=== PATIENT | female | born 1955 | race African-American/Black ===

== ENCOUNTER 2021-05-14 18:32 | Inpatient (IN) ==
[2021-05-14] MEDS ORDERED: MORPHINE 4 MG/1 ML VIAL IV STA (19:37)
[2021-05-14] MEDS ORDERED: SODIUM CHLORIDE 0.9% 1,000 ML IV STA (19:37)
[2021-05-14] MEDS ORDERED: ONDANSETRON 4 MG/2 ML VIAL IV STA (19:37)
[2021-05-14 19:44] LABS: Basophils % 0.2 % (0.0-0.8); Eosinophils # 0.1 10*3/uL (0.0-0.87); Eosinophils % 0.4 % (0.00-10.9); Hematocrit 40.4 VOL% (35.7-47.0); Hemoglobin 12.9 GM/DL (12.0-16.0); Immature Granulocytes % 0.5 %; Immature Granulocytes Absolute 0.06 #; Lymphocytes # 0.7 10*3/uL (1.4-4.0); Lymphocytes % 6.6 % (21.3-54.2); Mean Corpuscular HGB Conc 31.9 GM/DL (32-36); Mean Platelet Volume 10.1 FL (9.6-12.0); Monocytes % 1.8 % (1.7-12.7); Neutrophils % 90.5 % (38.7-73.9); Platelet Count 252 T/CUMM (130-400); Red Blood Count 4.49 MC/CUMM (3.8-5.5); Red Cell Distribution Width 15.9 % (9.3-17.3); White Blood Count 11.2 T/CUMM (4-12)
[2021-05-14 19:59] LABS: Alanine Aminotransferase 38 U/L (13-56); Albumin 3.3 G/DL (3.4-5.0); Alkaline Phosphatase 96 U/L (45-117); Amylase 200 U/L (25-115); Aspartate Amino Transferase 106 U/L (0-37); Blood Urea Nitrogen 20 MG/DL (7-18); Calcium 9.1 MG/DL (8.5-10.1); Carbon Dioxide 33 MMOL/L (21-32); Estimated Glom Filtration Rate 54 ML/MIN; Glucose 127 MG/DL (74-106); Potassium 3.2 MMOL/L (3.5-5.1); Sodium 143 MMOL/L (136-145)
[2021-05-14] MEDS ORDERED: KETOROLAC 30 MG/1 ML VIAL ONE (20:05)
[2021-05-14] MEDS ORDERED: KETOROLAC 30 MG/1 ML VIAL IV STA (20:18)
[2021-05-14 20:29] LABS: Bacteria,Urine Occasional /HPF (Few); Bilirubin,Urine Negative (Negative); Blood, Urine Negative (Negative); Glucose,Urine (UA) Negative (Negative); Hyaline Casts,Urine 8 /LPF (0-3); Ketones,Urine Negative (Negative); Mucus,Urine Occasional /LPF (Occasional); Nitrite,Urine Negative (Negative); Protein,Urine Negative; Squamous Epithelial Cell,Urine Occasional /HPF (0-10); Urine Appearance CLEAR (Clear); Urine Color Yellow (Yellow); Urine Specific Gravity 1.012 (1.001-1.035)
[2021-05-14] MEDS ORDERED: POTASSIUM CHLORIDE 20 MEQ TABLET PO STA (21:04)
[2021-05-14] MEDS ORDERED: PIPERACILLIN/TAZOBACTAM 3,375 MG in SODIUM CHLORIDE 0.9% 100 ML IV STA (21:28)
[2021-05-14] MEDS ORDERED: carvediloL 25 MG TABLET PO ONE (22:16)
[2021-05-14] MEDS ORDERED: DOXAZOSIN 4 MG TABLET PO STA (22:17)
[2021-05-14] MEDS ORDERED: hydrALAZINE 25 MG TABLET PO STA (22:17)
[2021-05-14] MEDS ORDERED: GLUCAGON 1 MG VIAL IM PRN (22:19)
[2021-05-14] MEDS ORDERED: carvediloL 25 MG TABLET PO STA (22:19)
[2021-05-14] MEDS ORDERED: DEXTROSE 50% 25 GM/50 ML VIAL IV PRN (22:19)
[2021-05-14] MEDS ORDERED: hydrALAZINE 20 MG/1 ML VIAL IV PRN (22:41)
[2021-05-14] MEDS ORDERED: DOCUSATE SODIUM 100 MG CAPSULE PO PRN (22:41)
[2021-05-14] MEDS ORDERED: ONDANSETRON 4 MG/2 ML VIAL IV PRN (22:41)
[2021-05-14] MEDS ORDERED: ACETAMINOPHEN 325 MG TABLET PO PRN (22:41)
[2021-05-15] MEDS: SODIUM CHLORIDE 0.9% 1,000 ML IV SCH ×3 (00:23→20:23)
[2021-05-15 03:11] LABS: Basophils % 0.1 % (0.0-0.8); Hematocrit 34.5 VOL% (35.7-47.0); Hemoglobin 11.2 GM/DL (12.0-16.0); Immature Granulocytes % 0.5 %; Immature Granulocytes Absolute 0.09 #; Lymphocytes # 0.5 10*3/uL (1.4-4.0); Lymphocytes % 2.4 % (21.3-54.2); Mean Corpuscular HGB Conc 32.5 GM/DL (32-36); Mean Corpuscular Volume 89.1 FL (87-102); Mean Platelet Volume 9.6 FL (9.6-12.0); Monocytes % 5.3 % (1.7-12.7); Neutrophils % 91.7 % (38.7-73.9); Platelet Count 205 T/CUMM (130-400); Red Blood Count 3.87 MC/CUMM (3.8-5.5); White Blood Count 19.7 T/CUMM (4-12)
[2021-05-15 03:24] LABS: PT Patient Result 11.4 SECS (10.5-12.0)
[2021-05-15 03:30] LABS: Albumin 2.6 G/DL (3.4-5.0); Calcium 8.2 MG/DL (8.5-10.1); Potassium 2.8 MMOL/L (3.5-5.1); Risk Ratio 3.64; Total Protein 6.5 G/DL (6.4-8.2)
[2021-05-15 03:32] LABS: Band Neutrophils 5 % (0-10); Hypochromasia Slight; Lymphocytes 4 % (20-55); Microcytosis Slight; Platelet Estimate Adequate; Segmented Neutrophils 84 % (50-85); Total Cells Counted 100
[2021-05-15] MEDS: PIPERACILLIN/TAZOBACTAM 3,375 MG in SODIUM CHLORIDE 0.9% 100 ML IV SCH ×3 (04:50→20:24)
[2021-05-15] MEDS ORDERED: ENOXAPARIN 40 MG/0.4 ML SYRINGE SUBCUT SCH (09:00)
[2021-05-15] MEDS: INSULIN LISPRO 100 UNIT/ML SUBCUT SCH ×4 (09:51→20:25)
[2021-05-15] MEDS: PANTOPRAZOLE 40 MG VIAL IV SCH (09:55)
[2021-05-15] MEDS: POTASSIUM CHLORIDE RIDER 10 MEQ/100 ML PREMIX IV PRN ×5 (10:48→16:38)
[2021-05-15 14:06] LABS: Calcium 7.7 MG/DL (8.5-10.1); Osmolality,Calculated 285.1 MOS/KG (273-304); Potassium 3.2 MMOL/L (3.5-5.1)
[2021-05-16] MEDS: POTASSIUM CHLORIDE RIDER 10 MEQ/100 ML PREMIX IV PRN ×4 (03:19→06:34)
[2021-05-16 05:19] LABS: Basophils % 0.2 % (0.0-0.8); Eosinophils # 0.1 10*3/uL (0.0-0.87); Eosinophils % 1.2 % (0.00-10.9); Hemoglobin 10.6 GM/DL (12.0-16.0); Immature Granulocytes % 0.4 %; Immature Granulocytes Absolute 0.05 #; Lymphocytes # 1.7 10*3/uL (1.4-4.0); Lymphocytes % 14.8 % (21.3-54.2); Mean Corpuscular HGB Conc 32.1 GM/DL (32-36); Mean Corpuscular Volume 91.7 FL (87-102); Mean Platelet Volume 10.4 FL (9.6-12.0); Monocytes % 5.4 % (1.7-12.7); Platelet Count 171 T/CUMM (130-400); Red Cell Distribution Width 16.2 % (9.3-17.3); White Blood Count 11.3 T/CUMM (4-12)
[2021-05-16 05:29] LABS: INR 1.1; PT Patient Result 12.3 SECS (10.5-12.0)
[2021-05-16 05:33] LABS: Calcium 7.8 MG/DL (8.5-10.1); Potassium 3.2 MMOL/L (3.5-5.1)
[2021-05-16 05:36] LABS: Albumin 2.5 G/DL (3.4-5.0); Bilirubin,Total 3.5 MG/DL (0.2-1.0); Calcium 8.1 MG/DL (8.5-10.1); Potassium 3.1 MMOL/L (3.5-5.1); Total Protein 6.3 G/DL (6.4-8.2)
[2021-05-16] MEDS: PIPERACILLIN/TAZOBACTAM 3,375 MG in SODIUM CHLORIDE 0.9% 100 ML IV SCH ×2 (05:38→17:01)
[2021-05-16] MEDS: SODIUM CHLORIDE 0.9% 1,000 ML IV SCH ×2 (06:03→22:05)
[2021-05-16] MEDS ORDERED: INDOMETHACIN SUPP 50 MG SUPP RECTAL ONE ×2 (06:16→08:00)
[2021-05-16] MEDS: PANTOPRAZOLE 40 MG VIAL IV SCH (08:52)
[2021-05-16] MEDS: INSULIN LISPRO 100 UNIT/ML SUBCUT SCH ×4 (08:52→22:04)
[2021-05-16] MEDS ORDERED: ONDANSETRON 4 MG/2 ML VIAL ONE (14:11)
[2021-05-16] MEDS ORDERED: DEXAMETHASONE 4 MG/1 ML VIAL ONE (14:11)
[2021-05-16] MEDS ORDERED: SUCCINYLCHOLINE 200 MG/10 ML VIAL ONE (14:11)
[2021-05-16] MEDS ORDERED: ROCURONIUM 50 MG/5 ML VIAL IV ONE (14:11)
[2021-05-16] MEDS ORDERED: propofoL 200 MG/20 ML VIAL IV ONE (14:11)
[2021-05-16] MEDS ORDERED: MIDAZOLAM 2 MG/2 ML VIAL ONE (14:11)
[2021-05-16] MEDS ORDERED: fentaNYL 100 MCG/2 ML VIAL ONE (14:11)
[2021-05-16] MEDS ORDERED: LIDOCAINE 2% 5 ML VIAL ONE (14:11)
[2021-05-16] MEDS ORDERED: GLYCOPYRROLATE 0.4 MG/2 ML VIAL ONE (14:45)
[2021-05-16] MEDS ORDERED: NEOSTIGMINE 10 MG/10 ML VIAL ONE (14:46)
[2021-05-16] MEDS ORDERED: SEVOFLURANE 1 UNIT/15 MINUTE INH ONE (15:21)
[2021-05-16 17:45] LABS: Calcium 8.7 MG/DL (8.5-10.1); Osmolality,Calculated 280.3 MOS/KG (273-304); Potassium 3.3 MMOL/L (3.5-5.1)
[2021-05-16] MEDS: LACTATED RINGERS 1,000 ML IV SCH (23:35)
[2021-05-17] MEDS: PIPERACILLIN/TAZOBACTAM 3,375 MG in SODIUM CHLORIDE 0.9% 100 ML IV SCH ×3 (00:43→16:20)
[2021-05-17 05:48] LABS: Basophils % 0.1 % (0.0-0.8); Hematocrit 33.2 VOL% (35.7-47.0); Immature Granulocytes % 0.6 %; Immature Granulocytes Absolute 0.05 #; Lymphocytes % 11.2 % (21.3-54.2); Mean Corpuscular HGB Conc 33.1 GM/DL (32-36); Mean Corpuscular Volume 88.5 FL (87-102); Mean Platelet Volume 10.4 FL (9.6-12.0); Monocytes % 4.6 % (1.7-12.7); Neutrophils % 83.5 % (38.7-73.9); Platelet Count 182 T/CUMM (130-400); Red Blood Count 3.75 MC/CUMM (3.8-5.5); Red Cell Distribution Width 15.6 % (9.3-17.3); White Blood Count 8.5 T/CUMM (4-12)
[2021-05-17] MEDS: SODIUM CHLORIDE 0.9% 1,000 ML IV SCH ×3 (06:00→20:21)
[2021-05-17 06:13] LABS: Albumin 2.6 G/DL (3.4-5.0); Bilirubin,Direct 0.72 MG/DL (0.0-0.20); Bilirubin,Indirect 1.3 MG/DL (0.0-1.0); Total Protein 6.6 G/DL (6.4-8.2)
[2021-05-17 06:25] LABS: Albumin 2.5 G/DL (3.4-5.0); Bilirubin,Total 1.3 MG/DL (0.2-1.0); Calcium 8.2 MG/DL (8.5-10.1); Potassium 3.4 MMOL/L (3.5-5.1); Total Protein 6.6 G/DL (6.4-8.2)
[2021-05-17] MEDS ORDERED: ceFAZolin 2,000 MG/50 ML DUPLEX IV ONE (07:07)
[2021-05-17] MEDS: INSULIN LISPRO 100 UNIT/ML SUBCUT SCH ×4 (07:41→20:15)
[2021-05-17] MEDS ORDERED: fentaNYL 100 MCG/2 ML VIAL ONE ×3 (10:38→12:19)
[2021-05-17] MEDS ORDERED: MIDAZOLAM 2 MG/2 ML VIAL ONE (10:38)
[2021-05-17] MEDS: LACTATED RINGERS 1,000 ML IV SCH (10:40)
[2021-05-17] MEDS: PANTOPRAZOLE 40 MG VIAL IV SCH (10:44)
[2021-05-17] MEDS ORDERED: TISSUE ADHESIVE 1 EACH APPLICATOR TOP ONE (12:22)
[2021-05-17] MEDS ORDERED: SEVOFLURANE 1 UNIT/15 MINUTE INH ONE ×3 (12:22→12:55)
[2021-05-17] MEDS ORDERED: SUCCINYLCHOLINE 200 MG/10 ML VIAL ONE (12:22)
[2021-05-17] MEDS ORDERED: hydrALAZINE 20 MG/1 ML VIAL ONE (12:22)
[2021-05-17] MEDS ORDERED: ESMOLOL 100 MG/10 ML VIAL IV ONE (12:22)
[2021-05-17] MEDS ORDERED: LACTATED RINGERS 1,000 ML IV ONE (12:22)
[2021-05-17] MEDS ORDERED: LIDOCAINE 2% 5 ML VIAL ONE (12:22)
[2021-05-17] MEDS ORDERED: ONDANSETRON 4 MG/2 ML VIAL ONE (12:22)
[2021-05-17] MEDS ORDERED: ROCURONIUM 50 MG/5 ML VIAL IV ONE (12:22)
[2021-05-17] MEDS ORDERED: propofoL 200 MG/20 ML VIAL IV ONE (12:22)
[2021-05-17] MEDS ORDERED: GLYCOPYRROLATE 0.4 MG/2 ML VIAL ONE ×2 (12:22→12:55)
[2021-05-17] MEDS ORDERED: NEOSTIGMINE 10 MG/10 ML VIAL ONE (12:55)
[2021-05-17] MEDS ORDERED: ONDANSETRON 4 MG/2 ML VIAL IV PRN (13:32)
[2021-05-17] MEDS ORDERED: HYDROmorphone 2 MG/1 ML VIAL IV PRN (13:32)
[2021-05-17] MEDS: HYDROmorphone 2 MG/1 ML VIAL IV PRN ×2 (16:20→20:15)
[2021-05-18] MEDS: PIPERACILLIN/TAZOBACTAM 3,375 MG in SODIUM CHLORIDE 0.9% 100 ML IV SCH ×2 (00:10→08:52)
[2021-05-18] MEDS: HYDROmorphone 2 MG/1 ML VIAL IV PRN (00:12)
[2021-05-18 05:56] LABS: Basophils % 0.3 % (0.0-0.8); Eosinophils # 0.1 10*3/uL (0.0-0.87); Eosinophils % 0.4 % (0.00-10.9); Hematocrit 34.7 VOL% (35.7-47.0); Hemoglobin 10.8 GM/DL (12.0-16.0); Immature Granulocytes % 0.7 %; Immature Granulocytes Absolute 0.08 #; Lymphocytes # 1.5 10*3/uL (1.4-4.0); Lymphocytes % 13.4 % (21.3-54.2); Mean Corpuscular HGB Conc 31.1 GM/DL (32-36); Mean Corpuscular Volume 91.6 FL (87-102); Mean Platelet Volume 9.8 FL (9.6-12.0); Monocytes % 6.6 % (1.7-12.7); NRBC # 0.02 10*3/uL; Neutrophils % 78.6 % (38.7-73.9); Platelet Count 213 T/CUMM (130-400); Red Blood Count 3.79 MC/CUMM (3.8-5.5); White Blood Count 11.2 T/CUMM (4-12)
[2021-05-18 06:18] LABS: Albumin 2.5 G/DL (3.4-5.0); Bilirubin,Total 1.1 MG/DL (0.2-1.0); Calcium 8.1 MG/DL (8.5-10.1); Osmolality,Calculated 284.8 MOS/KG (273-304); Total Protein 6.5 G/DL (6.4-8.2)
[2021-05-18] MEDS: INSULIN LISPRO 100 UNIT/ML SUBCUT SCH ×3 (07:19→16:04)
[2021-05-18] MEDS: LACTATED RINGERS 1,000 ML IV SCH (07:32)
[2021-05-18] MEDS: PANTOPRAZOLE 40 MG VIAL IV SCH (08:52)
[2021-05-18] MEDS ORDERED: cefTRIAXone 1,000 MG in SODIUM CHLORIDE 0.9% 100 ML IV SCH (10:30)
[2021-05-18 11:07] VITALS: BP 122/76
[2021-05-18] MEDS: SODIUM CHLORIDE 0.9% 1,000 ML IV SCH (11:47)
[2021-05-18] MEDS: POTASSIUM CHLORIDE 20 MEQ TABLET PO PRN ×2 (11:49→13:56)
== END 2021-05-18 16:45 | disposition home or self-care (01) | DRG 854 ==
LOC: N.ED 18:32 → N.EDINP 18:32 → N.3E 23:01 → SUATTDRO 05-15 09:04
PROVIDERS: ADMIT Internal Medicine; ATTEND Internal Medicine
PROC: ERCPWSP (ICD-10-PCS; 2021-05-16 12:35)
PROC: LAPCHOL (2021-05-17 11:41)